=== PATIENT | male | born 1965 | race Hispanic/Latino ===

== ENCOUNTER 2019-11-25 06:02 | Outpatient (CLI) | payer OTHER ==
[2019-11-25 18:01] LABS: Hemoglobin 15.4 g/dL (14.0-18.0); Mean Corpuscular HGB CONC 33.5 g/dL (32.0-36.0); Mean Corpuscular Hemoglobin 29.5 pg (27.0-31.0); Mean Corpuscular Volume 88.1 fL (78.0-98.0); Mean Platelet Volume 8.2 fL (7.4-10.4); Platelet Count 240 thou/uL (130-400); RBC Distribution Width 12.3 % (11.5-14.5); Red Blood Cell (RBC) Count 5.24 mill/uL (4.70-6.10)
[2019-11-25 18:33] LABS: Bacteria/HPF None Seen HPF (None Seen); Bilirubin Negative (Negative); Blood, Urine Negative (Negative); Clarity Clear (Clear); Glucose, Urine (Dipstick) Normal (Negative); Ketone, Urine Negative (Negative); Leukocyte Negative Leu/uL (Negative); Nitrite Negative (Negative); Protein, Urine (Dipstick) Negative (Neg-Trace); RBC/HPF 0-3 HPF (0-3); Specific Gravity, Urine 1.024 (1.002-1.036); Squamous Epithelial None Seen HPF (0-3); Urobilinogen Normal mg/dL (Less than 2); WBC/HPF 0-3 HPF (0-3); pH, Urine 6.5 (5.0-9.0)
[2019-11-25 19:20] LABS: Anion Gap 19 mmol/L (10-20); BUN (Urea Nitrogen) 21 mg/dL (8.4-25.7); Calc. Creatinine Clearance 0 mL/min (70-130); Calcium 9.1 mg/dL (7.8-10.44); Carbon Dioxide 23 mmol/L (22-29); Chloride 102 mmol/L (98-107); Estimated GFR-MDRD 83; Glucose 93 mg/dL (70-105); Potassium 4.5 mmol/L (3.5-5.1); Sodium 139 mmol/L (136-145)
[2019-11-26 14:48] LABS: SARS-CoV-2 MS2 Positive; SARS-CoV-2 N Gene Negative; SARS-CoV-2 S Gene Negative; SARS-CoV-2 by NAA Not Detected (NotDetected); SARS-CoV-2 orf1ab Negative
--- NOTE | 2019-11-28 15:45 | EKG ---
Test Reason : Blood Pressure : / mmHG Vent. Rate : 065 BPM Atrial Rate : 065 BPM P-R Int : 132 ms QRS Dur : 088 ms QT Int : 366 ms P-R-T Axes : 000 176 168 degrees QTc Int : 380 ms Normal sinus rhythm Right axis deviation Abnormal ECG Confirmed by JOY GUTIERREZ M.D. ([id number]) on 11/28/2019 3:45:18 PM Referred By: [email or web address] Confirmed By:JOY GUTIERREZ M.D.
== END 2019-11-25 06:03 | disposition home or self-care (01) ==
LOC: LABBT 06:02
PROVIDERS: ATTEND Urology
DX: Z01.818 Encounter for other preprocedural examination (principal); Z20.828 Contact with and (suspected) exposure to other viral communicable diseases; N40.0 Benign prostatic hyperplasia without lower urinary tract symptoms
CPT/HCPCS: 80048; 81001; 85027; 87086; 87635; 93005; 93010; U0003

== ENCOUNTER 2019-11-29 07:04 | Observation (INO) | payer OTHER ==
[2019-11-28 11:12] VITALS: BMI 25.3
[2019-11-29] MEDS ORDERED: Scopolamine 1.5 mg/72 hour Patch ONE (08:02)
[2019-11-29] MEDS ORDERED: Ondansetron PF 4 MG/2 ML Vial ONE ×2 (08:02→14:20)
[2019-11-29] MEDS ORDERED: Famotidine/PF 20 mg/2ml Vial ONE (08:02)
[2019-11-29] MEDS ORDERED: Levofloxacin 500 mg/D5W 100 ml Premix Bag ONE (08:35)
[2019-11-29] MEDS ORDERED: Fentanyl 100 MCG/2 ML VIAL ONE (10:58)
[2019-11-29] MEDS ORDERED: Promethazine HCl 25 MG/ML VIAL SLOW IVP PRN (12:03)
[2019-11-29] MEDS ORDERED: HYDROmorphone 2 MG/ML VIAL SLOW IVP PRN (12:03)
[2019-11-29] MEDS ORDERED: Ketorolac Tromethamine 30 MG/ML VIAL IVP PRN ×2 (12:03→13:51)
[2019-11-29] MEDS ORDERED: Ondansetron HCl/PF 4 MG/2 ML Vial IVP PRN (12:03)
[2019-11-29] MEDS ORDERED: Meperidine HCl/PF 25 MG/ML VIAL SLOW IVP PRN (12:03)
[2019-11-29] MEDS ORDERED: diphenhydrAMINE 50 MG/ML VIAL IVP PRN (13:51)
[2019-11-29] MEDS ORDERED: Zolpidem Tartrate 5 MG TAB PO PRN (13:51)
[2019-11-29] MEDS ORDERED: Hyoscyamine Sulfate SL 0.125 mg Tablet SL PRN (13:51)
[2019-11-29] MEDS ORDERED: Morphine 2 MG/ML VIAL SLOW IVP PRN (13:51)
[2019-11-29] MEDS ORDERED: Ondansetron PF 4 MG/2 ML Vial IVP PRN (13:51)
[2019-11-29] MEDS ORDERED: PROPOFOL 200 MG/20 ML VIAL ONE (14:20)
[2019-11-29] MEDS ORDERED: Dexamethasone 20 MG/5 ML VIAL ONE (14:20)
[2019-11-29] MEDS ORDERED: Lidocaine 1% PF 5 ML VIAL ONE (14:20)
[2019-11-29] MEDS: HYDROcodone/Acetaminophen 10/325 mg Tablet PO PRN (17:11)
[2019-11-29] MEDS: Sodium Chloride 0.9% 1,000 ML IV SCH (17:12)
--- NOTE | 2019-11-29 17:16 | OP ---
DATE OF PROCEDURE: 11/29/2019 PREOPERATIVE DIAGNOSIS: Enlarged prostate with lower urinary tract symptoms. POSTOPERATIVE DIAGNOSIS: Enlarged prostate with lower urinary tract symptoms. PROCEDURE PERFORMED: Bipolar transurethral resection of the prostate. ANESTHESIA: General. COMPLICATIONS: None. ESTIMATED BLOOD LOSS: Minimal. SPECIMEN: Prostate chips. DESCRIPTION OF PROCEDURE: After informed consent, the patient was taken to the operating room, transferred to the table under his own power. Anesthesia was established. A time-out was performed, showing the correct patient, site, and procedure. Preoperative antibiotics were administered. He was prepped and draped in the lithotomy position. I began by inserting the rigid resectoscope through the urethra noting a normal course and caliber of the urethra into the prostate noting moderately coapting lateral lobes and a high bladder neck. The bladder was then entered and systematically examined noting no mucosal abnormalities. He does have moderate trabeculation with no diverticula. Both ureters were normal in appearance. The resection loop was used to take down the median lobe/median bar from the bladder neck back to verumontanum. The left lobe was then resected from 1 o'clock down to midline and then the right lobe from 11 o'clock to midline. Care was taken to avoid resection distal to the verumontanum. Anterior obstructing tissue was then resected. Meticulous hemostasis was achieved. The Whisper evacuator was used to remove all prostate specimen. The bladder was then reinspected noting no further prostate chips. Both ureters were uninvolved with resection. Prostatic fossa was then inspected noting no active bleeding. The scope was then withdrawn and a 22-Macanese 3-way catheter placed with 30 mL instilled in the balloon. This was connected to CBI, which was running clear as we ended the case. He was brought down from lithotomy, transferred back to his hospital bed and taken to PACU in stable condition, where he will be admitted overnight for CBI. Job ID: [id number]
[2019-11-29] MEDS: clonazePAM 0.5 MG TAB PO SCH (20:08)
[2019-11-29] MEDS: Docusate 100 MG CAP PO SCH (20:08)
[2019-11-30] MEDS: HYDROcodone/Acetaminophen 10/325 mg Tablet PO PRN ×2 (00:34→09:41)
[2019-11-30] MEDS: Sodium Chloride 0.9% 1,000 ML IV SCH (00:36)
[2019-11-30] MEDS ORDERED: Losartan 25 MG TAB PO SCH (09:00)
[2019-11-30] MEDS: Docusate 100 MG CAP PO SCH (09:34)
[2019-11-30] MEDS: clonazePAM 0.5 MG TAB PO SCH (09:34)
[2019-11-30 11:34] VITALS: BP 121/77; TEMP 98.2
--- NOTE | 2019-12-01 14:31 | DIS ---
DATE OF ADMISSION: 11/29/2019 DATE OF DISCHARGE: 11/30/2019 DISCHARGE DIAGNOSIS: Enlarged prostate with lower urinary tract symptoms. PROCEDURE PERFORMED: Bipolar transurethral resection of the prostate. HOSPITAL COURSE: The patient underwent uncomplicated bipolar transurethral resection of the prostate. There were no surgical complications. He was managed with continuous bladder irrigation overnight with urine remaining clear. The following morning, CBI was turned off with urine staying clear without it. He was having no discomfort, and was deemed ready for discharge home at that point. DISCHARGE INSTRUCTIONS: Rodriguez catheter care daily, catheter to bag drainage, shower daily, light nonstressful activities. PLAN: Follow up next week for void trial. DISCHARGE MEDICATIONS: Resume home medications. New medications include: 1. Bactrim. 2. Oxybutynin. 3. Tramadol. Job ID: [id number]
== END 2019-11-30 11:25 | disposition home or self-care (01) ==
LOC: SDC 07:04 → SURG A 16:57
PROVIDERS: ADMIT Urology; ATTEND Urology
PROC: 0VT08ZZ Resection of Prostate, Via Natural or Artificial Opening Endoscopic (ICD-10-PCS; principal; 2019-11-29)
DX: N40.1 Benign prostatic hyperplasia with lower urinary tract symptoms (principal); R35.0 Frequency of micturition; I10 Essential (primary) hypertension; G47.30 Sleep apnea, unspecified; F41.9 Anxiety disorder, unspecified; Z79.899 Other long term (current) drug therapy
CPT/HCPCS: 88305; 88341; 88342; G0378; J1100; J1956; J2405; J2704; J3010; S0028

== ENCOUNTER 2019-12-09 13:35 | Outpatient (CLI) | payer OTHER ==
--- NOTE | 2019-12-09 15:14 | CT ---
CT ABDOMEN AND PELVIS PERFORMED WITHOUT CONTRAST ENHANCEMENT: Date: 12/09/2019 HISTORY: Patient has right flank pain. History of prostate surgery 2 weeks ago. COMPARISON: 07/23/2009 examination. FINDINGS: The lung bases are clear of infiltrative process. Liver shows fatty change. There are small hypodensities within the liver, too small to characterize, but they do appear stable as compared to the prior exam and felt to represent cysts. The spleen and pancreas regions are unremarkable. The gallbladder has been removed. Right and left adrenal glands, and right and left kidneys are normal in size. There are no renal calc yaya. There is no obstruction. No ureteral calculi. No significant periaortic or mesenteric adenopathy CT of pelvis was performed without contrast enhancement. A tiny amount of air is seen in the bladder, presumably related to some type of catheterization. Postop changes related to history of prostate sullivan rgery are noted. No perivesicular fat stranding. There is some mild sigmoid diverticulosis seen. The appendix is normal. Review of osseous structures show no concerning lytic or blastic bony change. IMPRESSION: 1. No acute findings of the abdomen or pelvis. 2. Postop changes related to prostate surgery noted. Tiny amount of air seen within the bladder. 3. Post cholecystectomy change. 4. Normal appendix. 5. No evidence of renal or ureteral calculi. POS: FLAQUITA
== END 2019-12-09 13:36 | disposition home or self-care (01) ==
LOC: SCSCT 13:35
PROVIDERS: ATTEND Family Medicine
DX: R10.9 Unspecified abdominal pain (principal); N32.89 Other specified disorders of bladder; Z90.49 Acquired absence of other specified parts of digestive tract; Z98.890 Other specified postprocedural states
CPT/HCPCS: 74176